=== PATIENT | female | born 1975 | race Caucasian/White ===

== ENCOUNTER → 2019-10-21 09:09 | Outpatient (BNVA) | payer OTHER, SELFPAY | PROVIDERS: PCP Nurse Practitioner; Visit Provider Internal Medicine | DX: Z20.818 Contact with and (suspected) exposure to other bacterial communicable diseases (principal) | CPT/HCPCS: 87635 ==

== ENCOUNTER → 2020-03-29 08:45 | Outpatient (BNVA) | payer OTHER, SELFPAY | PROVIDERS: PCP Nurse Practitioner; Visit Provider Obstetrics & Gynecology | DX: N92.6 Irregular menstruation, unspecified (principal); N92.0 Excessive and frequent menstruation with regular cycle | CPT/HCPCS: 83036; 84443; 85025; 88175; 88305 ==

== ENCOUNTER → 2020-04-05 08:06 | Outpatient (BNVA) | payer OTHER, SELFPAY | PROVIDERS: PCP Nurse Practitioner; Visit Provider Obstetrics & Gynecology | DX: N92.0 Excessive and frequent menstruation with regular cycle (principal) | CPT/HCPCS: 76830 ==

== ENCOUNTER → 2020-05-21 09:13 | Outpatient (BNVA) | payer OTHER, SELFPAY | PROVIDERS: PCP Nurse Practitioner; Visit Provider Obstetrics & Gynecology | DX: Z20.822 Contact with and (suspected) exposure to COVID-19 (principal); N92.0 Excessive and frequent menstruation with regular cycle | CPT/HCPCS: 87635 ==

== ENCOUNTER 2020-05-27 06:31 | Day surgery (SDC) | payer OTHER, SELFPAY ==
[2020-05-20 07:52] VITALS: BMI 34.7
--- NOTE | 2020-05-20 08:13 | ANES.PREANE2 ---
Pre-Anesthetic Assessment Pre-Anesthetic Assessment: Height/Weight: Height 1.68 m Weight 97.522 kg Preop Diagnosis: menorrhagia Proposed Procedure: Operation Date: 05/27/20 07:00 Proposed Procedures p Hysteroscopy 44329 [id number] N92.0(Not Applicable) - Jasmin Hong MD s Dilation And Curettage (D&C)(Not Applicable) - Jasmin Hong MD Was Beta Sarah taken within 24 hours: N/A Was Clonidine taken within 24 hours: N/A Social: Social History: No alcohol and No tobacco Exam: Pre-Anes Outpt Exam: alert, oriented x 3, clear to auscultation bilaterally and regular rate & rhythm Airway: Submandibular: WNL Cervical ROM: WNL MP: 2 Dentition: Full Pulmonary: Pulmonary: Asthma Metabolic: Metabolic: Morbid obesity Anesthetic Plan: ASA status: 2 Anesthesia: General Risk of > 500 ml blood loss (7ml/kg in children): No PFSH Anesthesia PFSH: Family History Brother Cancer Non-Hodgkins lymphoma Brother Cancer Leukemia Father Chronic kidney disease (CKD) Hypertension Mother Hypertension Denies family history of Ovarian cancer Diabetes CAD (coronary artery disease) Clotting disorder Hyperlipidemia Anesthesia complication Bleeding disorder Stroke Social History (Updated 05/19/20 @ 07:52 by ALISHA Parsons) Smoking and tobacco status: never smoked Alcohol intake: current Alcohol intake frequency: holidays/special occasions only Substance/Drug Use: never Data Anesthesia Cardiac Studies: No Data to Display
--- NOTE | 2020-05-27 07:06 | P.ANESUD_ITS ---
Pre-Anesthetic Update Pre-Anesthetic Assessment: Date of Surgery/Procedure: 05/27/20 Preop Amara gnosis: menorrhagia Proposed Procedure: Operation Date: 05/27/20 08:00 Proposed Procedures p Hysteroscopy 60241 71075 N92.0(Not Applicable) - Jasmin Hong MD s Dilation And Curettage (D&C) w/ablation, w/myosure and novasure(Not Applicable) - Jasmin Hong MD Any changes to Pre-Anesthetic Assessment?: No Exam: Pre-Anes Outpt Exam: alert, oriented x 3, clear to auscultation bilaterally and regular rate & rhythm Cardiac Studies: No Data to Display
[2020-05-27 07:12] VITALS: BP 168/108; PULSE 70; RESP 18; TEMP 36.4; O2SAT 99
[2020-05-27] MEDS: sodium chloride 0.9% 1,000 ML 30 ML IV (07:16)
[2020-05-27] MEDS: ketorolac 30 mg/mL INJ IVP (07:16)
--- NOTE | 2020-05-27 08:23 | W.PM.OPSUD ---
Surgery/Procedure H&P Update DATE OF PROCEDURE: May 27, 2020 DATE H&P PERFORMED: 05/19/20 H&P UPDATE INFORMATION: I have reviewed H&P completed within last 30 days, I have examined patient prior to procedure and No changes to prior documentation PREOP DIAGNOSIS: menorrhagia PLANNED PROCEDURE: Operation Date: 05/27/20 08:00 Proposed Procedures p Hysteroscopy 99661 [id number] N92.0(Not Applicable) - Jasmin Hong MD s Dilation And Curettage (D&C) w/ablation, w/myosure and novasure(Not Applicable) - Jasmin Hong MD
[2020-05-27 08:34] LABS: OR HCG Qualitative Urine Negative (Negative)
--- NOTE | 2020-05-27 09:17 | P.OP_ITS ---
Operative Report Date of procedure: May 27, 2020 Pre-op Diagnosis: menorrhagia Post-op diagnosis: same Post-op Findings: 10 week sized uterus with some posterior tissue Procedure Done: Hysteroscopy, dilation and curettage with endometrial ablation hysteroscopy deficit 730 ml Specimens removed/disposition: endometrial curettings Pathology: other Surgeon: Jasmin Hong Anesthesia: MAC Estimated blood loss (mL): 5 IV fluids (mL): 700 Urine output (mL): 0 Complications: none Condition: stable Disposition: PACU Procedure: The patient was taken to the operating room where monitored anesthesia was administered and found to be adequate. She was prepped and draped in the normal sterile fashion in the dorsal lithotomy position in [facility]. A weighted speculum was placed into the vagina and the anterior lip of the cervix grasped with a single-tooth tenaculum. The uterus was sounded to 10 cm. The uterine cavity length was determined to be 6 cm. The cervix was dilated to 15 [place]ian. The hysteroscope was advanced into the endometrial cavit y. There was tissue posteriorly. The MyoSure device was placed and activated to remove the tissue. The endometrial cavity was normalized. Pictures were taken pre and post procedure. The myosure was removed. The NovaSure device was placed into the uterine cavity. The width was determined to be 4.8 cm the length was 6 cm. The NovaSure device was activated and burn time was 56 seconds. All instruments were removed. The patient tolerated the procedure well. Sponge lap and needle counts were correct x3. She was taken to the recovery room in stable condition.
[2020-05-27 09:20] VITALS: BP 129/81; PULSE 77; RESP 14; TEMP 36.4; O2SAT 96
[2020-05-27 09:25] VITALS: BP 140/87; PULSE 74; RESP 16; O2SAT 96
--- NOTE | 2020-05-27 09:25 | PM.DCS ---
Discharge Providers Date of Discharge: May 27, 2020 Attending Provider at Discharge: Jasmin Hong MD Primary Care Provider: April Laureano APN Diagnoses at Discharge Discharge Diagnosis (1) Postoperative state: Status: Acute Reason for Visit Reason for Visit: Hysteroscopy, dilation curettage with ablation (59 Hospital Course Hospital Course The patient was admitted for surgery. She did well postoperatively and was ready for discharge. Physical Exam Sepsis: Is patient septic: No Discharge Data Data Completed and Pending: Pending at discharge Category Date Time Status ES surgery / GI i mages Routine Exams 05/27/20 08:19 Taken Pathology: Surgic al [PTH] Routine Pth 05/27/20 09:23 Ordered Labs from last 24 hours 05/27/20 07:19 Urine HCG, Qual Negative Vitals: Last Vital Signs Temp 97.6 F 05/27/20 07:12 Pulse 70 05/27/20 07:12 Resp 18 05/27/20 07:12 BP 168/108 05/27/20 07:12 Pulse Ox 99 05/27/20 07:12 Discharge Plan Discharge Patient Disposition: Home Condition: Stable Prescriptions: Continued albuterol sulfate 0.63 mg/3 mL solution for nebulization 0.63 mg inhalation Q6H PRN (Reason: sob) RF: 0 albuterol sulfate 90 mcg/actuation HFA aerosol inhaler 1 inh inhalation QID PRN (Reason: allergies) RF: 0 Spiriva with HandiHaler 18 mcg capsule, w/inhalation device 1 cap inhalation DAILY RF: 0 Flovent HFA 110 mcg/actuation HFA aerosol inhaler 2 puff inhalation BID RF: 0 montelukast [Singulair] 10 mg tablet 10 mg PO DAILY RF: 0 fluticasone propionate [Flonase Allergy Relief] 50 mcg/actuation spray,suspension 1 spray intranasal DAILY PRN (Reason: allergies) RF: 0 cetirizine [Zyrtec] 10 mg tablet 10 mg PO DAILY PRN (Reason: allergies) RF: 0 Discharge Orders: Discharge Order (Routine); Ordered 05/27/20 Ordered By: Jasmin Hong Discharge Attestations Time Spent in Discharge Care*: less than 30 min Quality Metrics Clinical Quality Measures During this hospital stay, did patient experience: None Coding Level of Care Code Acute Chg FW DC note Diagnoses Postoperative state Z98.890
[2020-05-27 09:30] VITALS: BP 146/101; PULSE 76; RESP 14; TEMP 36.4; O2SAT 94
[2020-05-27 09:39] VITALS: BP 152/85; PULSE 76; RESP 16; TEMP 36.4; O2SAT 94
[2020-05-27 09:50] VITALS: BP 135/98; PULSE 67; RESP 18; O2SAT 95
--- NOTE | 2020-05-27 13:34 | ANE.PACU2 ---
Inpatient post-anesthesia follow up: Airway intact: Yes Vital signs: Temperature 97.5 F Pulse Rate 67 Respiratory Rate 18 Blood Pressure 135/98 Pulse Oximetry 95 Oxygen Delivery Me thod Room Air Oxygen Flow Rate 6 Fraction of Inspir ed Oxygen Hydration adequate: Yes Nausea and vomiting: No Pain level: 3 Mental status: Baseline
== END 2020-05-27 10:20 | disposition home or self-care (01) ==
PROVIDERS: Anesthesiology; PCP Nurse Practitioner; Visit Provider Obstetrics & Gynecology
PROC: 0UDB8ZZ Extraction of Endometrium, Via Natural or Artificial Opening Endoscopic (ICD-10-PCS; CPT 58558; 2020-05-27 08:00)
DX: N92.0 Excessive and frequent menstruation with regular cycle (principal); E66.01 Morbid (severe) obesity due to excess calories; Z68.34 Body mass index [BMI] 34.0-34.9, adult; J45.909 Unspecified asthma, uncomplicated
CPT/HCPCS: 58563; 81025; 84703; 88305; 96365; 96374; J0690; J1885; J2250; J2405; J2704; J3010; J7030

== ENCOUNTER 2020-10-08 07:14 | Outpatient (CLI) | payer OTHER, SELFPAY ==
--- NOTE | 2020-10-08 | XR_ITS ---
WS: [id number] AP pelvis, 2 views of each hip, 10/08/2020 Clinical Data: PAIN IN RIGHT HIP Comparison: None. Findings: AP pelvis: No fractures or dislocations are seen. The SI joints and pubic symphysis are unremarkable. No bone de struction or erosion is noted. The sacrum is unremarkable. Right hip: No fractures or dislocations are seen. There is a small right acetabular lip. No erosion, sclerosis, narrowing or cyst formation is seen. The soft tissues are normal. Left hip: No fractures or dislocations are seen. There is a small acetabular lip. No erosion, sclerosis, narrow ing or cyst formation is seen. The soft tissues are normal. XR/XR hip BI m 5V wo/w pel* [id number] Impression: 1. Negative AP pelvis. 2. Minimal osteoarthritic lipping of both hips.
--- NOTE | 2020-10-08 07:29 | XR_ITS ---
WS: [id number] Lumbar spine, 3 views, 10/08/2020 Clinical Data: PAIN IN RIGHT HIP Comparison: None. Findings: No compression fractures or subluxation is seen. No disc space narrowing is seen. The transverse proc esses and SI joints are normal. There is minimal osteoarthritic spurring from L1 through L4. There are clips in the right upper quadr ant from a cholecystectomy. XR/XR lumbar spine 2-3V* [id number] Impression: Minimal osteoarthritis L1-L4.
--- NOTE | 2020-10-08 07:30 | XR_ITS ---
WS: [id number] AP pelvis, 2 views of each hip, 10/08/2020 Clinical Data: PAIN IN RIGHT HIP Comparison: None. Findings: AP pelvis: No fractures or dislocations are seen. The SI joints and pubic symphysis are unremarkable. No bone de struction or erosion is noted. The sacrum is unremarkable. Right hip: No fractures or dislocations are seen. There is a small right acetabular lip. No erosion, sclerosis, narrowing or cyst formation is seen. The soft tissues are normal. Left hip: No fractures or dislocations are seen. There is a small acetabular lip. No erosion, sclerosis, narrow ing or cyst formation is seen. The soft tissues are normal.
== END 2020-10-08 07:15 | disposition home or self-care (01) ==
PROVIDERS: PCP Nurse Practitioner; Visit Provider Nurse Practitioner Family
DX: M25.552 Pain in left hip (principal); M25.551 Pain in right hip; M47.816 Spondylosis without myelopathy or radiculopathy, lumbar region
CPT/HCPCS: 72100; 73521; 73523

== ENCOUNTER 2023-01-12 14:45 | Emergency (ER) | payer OTHER, SELFPAY ==
[2023-01-12 15:16] VITALS: BP 157/106; PULSE 65; RESP 18; TEMP 36.7; O2SAT 100; BMI 36.3
--- NOTE | 2023-01-12 15:35 | ED_ITS ---
Documented by User: RENATA Anaya 01/15/23 09:00 HPI - SOB/Dyspnea General: Chief Complaint: Shortness of Breath/Dyspnea Stated Complaint: SOB,blood pressure Time Seen by Provider: 01/12/23 15:28 Source: patient Mode of arrival: ambulatory Limitations: no limitations History of Present Illness: HPI Narrative: Patient is a 47-year-old female presents to ED today with a complaint of shortness of breath. Patient states on 12/25 she was started on lisinopril for hypertension. Patient states very shortly after beginning this medication she developed a cough and shortness of breath. Never had any lip/tongue/facial swelling. Occasional throat itching. She states she took this medication for about a week before discontinuing it on 01/01. Spite discontinuation of the medication-her symptoms have persisted. She was seen recently (01/09) and placed on a prednisone on taper. She states the first day after starting the prednisone she initially felt somewhat improved but again symptoms returned. 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 Patient states she has asthma and has been using her albuterol and other respiratory medications without any relief. Reporting dyspnea with minimal exertion at times but other times she seems okay stating she was actually able to get on her elliptical machine this morning. Continues to have a mild dry non-productive cough. No chest pain, nasal congestion/sinus pain/pressure/rhinorrhea/sore throat/headache. No fevers. MD elicited complaint: shortness of breath Pertinent past history: asthma Onset (ago): day(s) Timing: constant and intermittent Severity: moderate Exacerbating factors: exertion Relieving factors: nothing Known history of: asthma Associated symptoms: Deny abdominal pain, chest congestion, chest pain, dizziness, extremity pain, fever(s), hemoptysis, lightheadedness, nausea, orthopnea, palpitations, syncope or vomiting Treatment prior to arrival: bronchodilator Related Data: Home oxygen amount: none Review of Systems Const: Denies: fever(s), chills, body aches, fatigue or malaise ENMT: Denies: throat pain or odynophagia Card: Reports: dyspnea on exertion; Denies: chest pain, palpitations, irregular heart rhythm, edema, swelling of feet/ankles, lightheadedness, syncope, pre-syncope, orthopnea, leg pain with exertion or acrocyanosis Resp: Reports: dyspnea and non-productive cough; Denies: productive cough, wheezing, stridor, pain on inspiration, change in phlegm color, hemoptysis or chest congestion GI: Denies: abdominal pain, nausea, vomiting or diarrhea Musc: Denies: neck pain, back pain, extremity pain or joint pain Skin/Breast: Denies: rash Neuro: Denies: headache(s), numbness in extremities, weakness in extremities, sensory changes or dizziness PFSH ED PFSH: Family History Brother Cancer Non-Hodgkins lymphoma Brother Cancer Leukemia Father Chronic kidney disease (CKD) Hypertension Mother Hypertension Denies family history of Ovarian cancer Diabetes CAD (coronary artery disease) Clotting disorder Hyperlipidemia Anesthesia complication Bleeding disorder Stroke Social History Smoking and tobacco/nicotine status: never used tobacco/nicotine Alcohol intake: current Alcohol intake frequency: holidays/special occasions only Substance/Drug Use: never Physical Exam Const: COMMON NORMALS: patient oriented x3, no limitations, alert and well nourished GENERAL APPEARANCE: cooperative NUTRITIONAL APPEARANCE: obese ORIENTATION/CONSCIOUSNESS: Yes awake, Yes oriented to person, Yes oriented to place and Yes oriented to time OTHER: appears winded while speaking with me-O2 sats are normal and she is not appearing tachypneic HENMT: COMMON NORMALS: normocephalic and atraumatic HEAD & SCALP: normal to inspection, normocephalic and atraumatic Chest: COMMONS NORMALS: normal inspection of the chest Resp: COMMON NORMALS: normal respiratory effort and clear to auscultation bilaterally AUSCULTATION: clear to auscultation bilaterally Cardio: COMMON NORMALS: regular rate and regular rhythm RATE: regular rate RHYTHM: regular rhythm Extremity: COMMON NORMALS: no clubbing, cyanosis or edema, no calf tenderness and no pedal edema Neuro: COMMON NORMALS: patient oriented x3 SENSORIUM/ORIENTATION: Yes alert , Yes oriented to person, Yes oriented to place and Yes oriented to time Skin: COMMON NORMALS: no rashes or lesions noted GENERAL SKIN EXAM: no rashes or lesions noted Course 2 ED course: Labs pending. CXR normal. Care being transferred to Jose L Little, EM[employer]UTIONS EXECUTIVE at 1700 ES Vital Signs: Vital signs: Vital Signs Temperature 98.1 F 01/12/23 15:16 Pulse Rate 65 01/12/23 15:16 Respiratory Rate 18 01/12/23 15:16 Blood Pressure 157/106 01/12/23 15:16 Pulse Oximetry 100 01/12/23 15:16 Oxygen Delivery Me thod Room Air 01/12/23 15:16 MDM - SOB/Dyspnea Lab Data 01/12/23 16:16 01/12/23 16:16 Labs/Radiology: Radiology Impressions Chest X-Ray 01/12/23 15:35 IMPRESSION: No acute findings. Laboratory Results WBC 11.86 10^3/uL (3.29-11.43) H 01/12/23 16:16 RBC 4.59 10^6/uL (3.85-5.65) 01/12/23 16:16 Hgb 14.40 g/dL (11.27-16.99) 01/12/23 16:16 Hct 42.2 % (36-47) 01/12/23 16:16 MCV 91.9 fl (85-98) 01/12/23 16:16 MCH 31.4 pg (27-33) 01/12/23 16:16 MCHC 34.1 g/dL (30-55) 01/12/23 16:16 RDW 13.2 % (12.1-15.1) 01/12/23 16:16 Plt Count 331 10^3/cmm (157-399) 01/12/23 16:16 MPV 9.7 fL (7.4-10.4) 01/12/23 16:16 Neut % (Auto) 86.1 % 01/12/23 16:16 Lymph % (Auto) 10.6 % 01/12/23 16:16 [place] % (Auto) 2.1 % 01/12/23 16:16 Eos % (Auto) 0.0 % 01/12/23 16:16 Baso % (Auto) 0.1 % 01/12/23 16:16 Neut # (Auto) 10.21 10^3/uL (1.8-7.7) H 01/12/23 16:16 Lymph # (Auto) 1.3 10^3/uL (0.8-4.8) 01/12/23 16:16 [place] # (Auto) 0.3 10^3/uL (0.2-0.9) 01/12/23 16:16 Eos # (Auto) 0.0 10^3/uL (0.0-0.8) 01/12/23 16:16 Baso # (Auto) 0.0 10^3/uL (0.0-0.1) 01/12/23 16:16 Nucleated RBC % (auto) 0 % 01/12/23 16:16 Nucleated RBCs # 0.0 /100WBC 01/12/23 16:16 D-Dimer 0.31 ug/mLFEU (0-0.59) 01/12/23 16:16 Sodium 137 mmol/L (136-145) 01/12/23 16:16 Potassium 4.3 mmol/L (3.5-5.1) 01/12/23 16:16 Chloride 106 mmol/L (98-107) 01/12/23 16:16 Carbon Dioxide 17 mmol/L (22-29) L 01/12/23 16:16 Anion Gap 18.3 (5-19) 01/12/23 16:16 BUN 17 mg/dL (6-20) 01/12/23 16:16 Creatinine 0.9 mg/dL (0.5-0.9) 01/12/23 16:16 GFR Calculation 66.5 mL/min (90-130) L 01/12/23 16:16 Glucose 141 mg/dL (65-115) H 01/12/23 16:16 Calculated Osmolality 288 mOsm/kg (285-295) 01/12/23 16:16 Calcium 9.6 mg/dL (8.5-10.5) 01/12/23 16:16 Total Bilirubin 0.2 mg/dL (0.15-1.2) 01/12/23 16:16 AST 24 U/L (0-32) 01/12/23 16:16 ALT 22 U/L (0-33) 01/12/23 16:16 Alkaline Phosphatase 67 U/L (35-105) 01/12/23 16:16 NT-Pro-B Natriuret Pep 137 pg/mL (0-125) H 01/12/23 16:16 Total Protein 7.2 g/dL (6.6-8.7) 01/12/23 16:16 Albumin 4.3 g/dL (3.5-5.2) 01/12/23 16:16 Globulin 2.9 g/dL (1.3-4.6) 01/12/23 16:16 Procalcitonin 0.03 ng/mL (0-0.5) 01/12/23 16:16 Nasal Influ A H1 2009 PCR Not detected (NOT DETECT) 01/12/23 17:37 Adenovirus (PCR) Not detected (NOT DETECT) 01/12/23 17:37 C. pneumoniae DNA (PCR) Not detected (NOT DETECT) 01/12/23 17:37 Coronavirus 229E (PCR) Not detected (NOT DETECT) 01/12/23 17:37 Human Metapneumovir PCR Not detected (NOT DETECT) 01/12/23 17:37 Influenza A (H1) PCR Not detected (NOT DETECT) 01/12/23 17:37 Influenza A (H3) PCR Not detected (NOT DETECT) 01/12/23 17:37 Influenza Type A (PCR) Not detected (NOT DETECT) 01/12/23 17:37 Influenza Type B (PCR) Not detected (NOT DETECT) 01/12/23 17:37 M. pneumoniae (PCR) Not detected (NOT DETECT) 01/12/23 17:37 Parainfluenza 1 (PCR) Not detected (NOT DETECT) 01/12/23 17:37 Parainfluenza 2 (PCR) Not detected (NOT DETECT) 01/12/23 17:37 Parainfluenza 3 (PCR) Not detected (NOT DETECT) 01/12/23 17:37 Parainfluenza 4 (PCR) Not detected (NOT DETECT) 01/12/23 17:37 RSV Type A (PCR) Not detected (NOT DETECT) 01/12/23 17:37 RSV Type B (PCR) Not detected (NOT DETECT) 01/12/23 17:37 Entero/Rhino (PCR) Not detected (NOT DETECT) 01/12/23 17:37 SARS-CoV-2 (PCR) Not detected (NOT DETECT) 01/12/23 17:37 Discharge Plan Discharge Patient Disposition: Home Clinical Impression: Asthma with exacerbation Qualifiers: Asthma severity: moderate Asthma persistence: persistent Qualified Code(s): J45.41 - Moderate persistent asthma with (acute) exacerbation Hypertension Qualifiers: Hypertension type: unspecified Qualified Code(s): I10 - Essential (primary) hypertension Condition: Stable Prescriptions: New prednisone 20 mg tablet 60 mg PO DAILY 5 Days Qty: 15 0RF amlodipine 10 mg tablet 10 mg PO DAILY Qty: 30 0RF No Action medroxyprogesterone [Provera] 2.5 mg tablet 2.5 mg PO DAILY Qty: 90 5RF albuterol sulfate 0.63 mg/3 mL solution for nebulization 0.63 mg inhalation Q6H PRN (Reason: sob) albuterol sulfate 90 mcg/actuation HFA aerosol inhaler 1 inh inhalation QID PRN (Reason: allergies) Spiriva with HandiHaler 18 mcg capsule, w/inhalation device 1 cap inhalation DAILY Rx Instructions: puncture 1 cap using device; one dose = 2 inhalations Flovent HFA 110 mcg/actuation HFA aerosol inhaler 2 puff inhalation BID fluticasone propionate [Flonase Allergy Relief] 50 mcg/actuation spray,suspension 1 spray intranasal DAILY PRN (Reason: allergies) Rx Instructions: administer into each nostril cetirizine [Zyrtec] 10 mg tablet 10 mg PO DAILY PRN (Reason: allergies) tretinoin 0.1 % cream 1 applic TOPICAL BEDTIME prednisone 20 mg tablet See Rx Instructions .ROUTE .COMPLEX Rx Instructions: TAKE 3 TABLETS BY MOUTH DAILY FOR 3 DAYS, 2 TABLETS DAILY FOR 3 DAYS, THEN 1 TABLET DAILY FOR 3 DAYS. spironolactone 100 mg tablet 100 mg PO DAILY amlodipine 5 mg tablet 5 mg PO DAILY Discharge Orders: Discharge ED (Routine); Ordered 01/12/23 Ordered By: Jose L Little Referrals: Sangeetha Guy FNP [Primary Care Provider] - Discharge Diet: Usual diet Discharge Activity: Increase activity as tolerated Patient Instructions: Dyspnea (ED) Activity Restrictions/Additional Instructions: Increase prednisone back up to 60 mg for the next 5 days and then decrease back to 40 and your original taper. Drink plenty of water with medications. Increase amlodipine to 10 mg daily for better blood pressure control. Follow-up with primary care in 3 to 5 days for recheck. Return to ED for worsening symptoms such as fever greater than 100.4, increasing shortness of breath, severe chest pain. Sign Out Sign Out Data: Patient Sign Out occurred on 01/12/23 at 16:59. Patient's care was discussed, and care was transferred from to Jose L Little. Coding Level of Care Code ED Actuary Clerk for Ella Fwd Documented by User: BETY Bustos 01/12/23 17:39 HPI - SOB/Dyspnea General: Chief Complaint: Shortness of Breath/Dyspnea Stated Complaint: SOB,blood pressure Time Seen by Provider: 01/12/23 15:28 PFSH ED PFSH: Family History Brother Cancer Non-Hodgkins lymphoma Brother Cancer Leukemia Father Chronic kidney disease (CKD) Hypertension Mother Hypertension Denies family history of Ovarian cancer Diabetes CAD (coronary artery disease) Clotting disorder Hyperlipidemia Anesthesia complication Bleeding disorder Stroke Social History Smoking and tobacco/nicotine status: never used tobacco/nicotine Alcohol intake: current Alcohol intake frequency: holidays/special occasions only Substance/Drug Use: never Course Vital Signs: Vital signs: Vital Signs Temperature 98.1 F 01/12/23 15:16 Pulse Rate 65 01/12/23 15:16 Respiratory Rate 18 01/12/23 15:16 Blood Pressure 157/106 01/12/23 15:16 Pulse Oximetry 100 01/12/23 15:16 Oxygen Delivery Me thod Room Air 01/12/23 15:16 MDM - SOB/Dyspnea Medical Decision Making Patient comes in today for complaints of increased shortness of breath. Patient reports that she has had increased shortness of breath after being started on lisinopril at the first of the month. Patient reports no fever or chest pain. On exam lungs had good air movement with a mild inspiratory wheeze. No edema is noted in the extremities. Vital signs were normal except for elevated blood pressure 157/106. Differential diagnosis includes CHF, exacerbation of asthma, COPD exacerbation, PE, adverse drug effect. Chest x-ray was normal. White blood cell count with mild leukocytosis at ,000, patient is presently on prednisone 40 mg daily. CMP was unremarkable. BNP was slightly elevated but not significant at 137. Chest x-ray was normal. No signs of CHF was noted. Suspect that this may be an exacerbation of patient's asthma we will increase her prednisone back to 60 mg and she will continue for routine care. Recommended increasing amlodipine to 10 mg daily for better blood pressure control. Discussed need for follow-up or return to the ER. Patient reported understanding agreed to plan. Lab Data 01/12/23 16:16 01/12/23 16:16 Labs/Radiology: Radiology Impressions Chest X-Ray 01/12/23 15:35 IMPRESSION: No acute findings. Laboratory Results WBC 11.86 10^3/uL (3.29-11.43) H 01/12/23 16:16 RBC 4.59 10^6/uL (3.85-5.65) 01/12/23 16:16 Hgb 14.40 g/dL (11.27-16.99) 01/12/23 16:16 Hct 42.2 % (36-47) 01/12/23 16:16 MCV 91.9 fl (85-98) 01/12/23 16:16 MCH 31.4 pg (27-33) 01/12/23 16:16 MCHC 34.1 g/dL (30-55) 01/12/23 16:16 RDW 13.2 % (12.1-15.1) 01/12/23 16:16 Plt Count 331 10^3/cmm (157-399) 01/12/23 16:16 MPV 9.7 fL (7.4-10.4) 01/12/23 16:16 Neut % (Auto) 86.1 % 01/12/23 16:16 Lymph % (Auto) 10.6 % 01/12/23 16:16 [place] % (Auto) 2.1 % 01/12/23 16:16 Eos % (Auto) 0.0 % 01/12/23 16:16 Baso % (Auto) 0.1 % 01/12/23 16:16 Neut # (Auto) 10.21 10^3/uL (1.8-7.7) H 01/12/23 16:16 Lymph # (Auto) 1.3 10^3/uL (0.8-4.8) 01/12/23 16:16 [place] # (Auto) 0.3 10^3/uL (0.2-0.9) 01/12/23 16:16 Eos # (Auto) 0.0 10^3/uL (0.0-0.8) 01/12/23 16:16 Baso # (Auto) 0.0 10^3/uL (0.0-0.1) 01/12/23 16:16 Nucleated RBC % (auto) 0 % 01/12/23 16:16 Nucleated RBCs # 0.0 /100WBC 01/12/23 16:16 D-Dimer 0.31 ug/mLFEU (0-0.59) 01/12/23 16:16 Sodium 137 mmol/L (136-145) 01/12/23 16:16 Potassium 4.3 mmol/L (3.5-5.1) 01/12/23 16:16 Chloride 106 mmol/L (98-107) 01/12/23 16:16 Carbon Dioxide 17 mmol/L (22-29) L 01/12/23 16:16 Anion Gap 18.3 (5-19) 01/12/23 16:16 BUN 17 mg/dL (6-20) 01/12/23 16:16 Creatinine 0.9 mg/dL (0.5-0.9) 01/12/23 16:16 GFR Calculation 66.5 mL/min (90-130) L 01/12/23 16:16 Glucose 141 mg/dL (65-115) H 01/12/23 16:16 Calculated Osmolality 288 mOsm/kg (285-295) 01/12/23 16:16 Calcium 9.6 mg/dL (8.5-10.5) 01/12/23 16:16 Total Bilirubin 0.2 mg/dL (0.15-1.2) 01/12/23 16:16 AST 24 U/L (0-32) 01/12/23 16:16 ALT 22 U/L (0-33) 01/12/23 16:16 Alkaline Phosphatase 67 U/L (35-105) 01/12/23 16:16 NT-Pro-B Natriuret Pep 137 pg/mL (0-125) H 01/12/23 16:16 Total Protein 7.2 g/dL (6.6-8.7) 01/12/23 16:16 Albumin 4.3 g/dL (3.5-5.2) 01/12/23 16:16 Globulin 2.9 g/dL (1.3-4.6) 01/12/23 16:16 Procalcitonin 0.03 ng/mL (0-0.5) 01/12/23 16:16 Nasal Influ A H1 2009 PCR Not detected (NOT DETECT) 01/12/23 17:37 Adenovirus (PCR) Not detected (NOT DETECT) 01/12/23 17:37 C. pneumoniae DNA (PCR) Not detected (NOT DETECT) 01/12/23 17:37 Coronavirus 229E (PCR) Not detected (NOT DETECT) 01/12/23 17:37 Human Metapneumovir PCR Not detected (NOT DETECT) 01/12/23 17:37 Influenza A (H1) PCR Not detected (NOT DETECT) 01/12/23 17:37 Influenza A (H3) PCR Not detected (NOT DETECT) 01/12/23 17:37 Influenza Type A (PCR) Not detected (NOT DETECT) 01/12/23 17:37 Influenza Type B (PCR) Not detected (NOT DETECT) 01/12/23 17:37 M. pneumoniae (PCR) Not detected (NOT DETECT) 01/12/23 17:37 Parainfluenza 1 (PCR) Not detected (NOT DETECT) 01/12/23 17:37 Parainfluenza 2 (PCR) Not detected (NOT DETECT) 01/12/23 17:37 Parainfluenza 3 (PCR) Not detected (NOT DETECT) 01/12/23 17:37 Parainfluenza 4 (PCR) Not detected (NOT DETECT) 01/12/23 17:37 RSV Type A (PCR) Not detected (NOT DETECT) 01/12/23 17:37 RSV Type B (PCR) Not detected (NOT DETECT) 01/12/23 17:37 Entero/Rhino (PCR) Not detected (NOT DETECT) 01/12/23 17:37 SARS-CoV-2 (PCR) Not detected (NOT DETECT) 01/12/23 17:37 All radiology interpretation(s) finalized by discharge Discharge Plan Discharge Patient Disposition: Home Clinical Impression: Asthma with exacerbation Qualifiers: Asthma severity: moderate Asthma persistence: persistent Qualified Code(s): J45.41 - Moderate persistent asthma with (acute) exacerbation Hypertension Qualifiers: Hypertension type: unspecified Qualified Code(s): I10 - Essential (primary) hypertension Condition: Stable Prescriptions: New prednisone 20 mg tablet 60 mg PO DAILY 5 Days Qty: 15 0RF amlodipine 10 mg tablet 10 mg PO DAILY Qty: 30 0RF No Action medroxyprogesterone [Provera] 2.5 mg tablet 2.5 mg PO DAILY Qty: 90 5RF albuterol sulfate 0.63 mg/3 mL solution for nebulization 0.63 mg inhalation Q6H PRN (Reason: sob) albuterol sulfate 90 mcg/actuation HFA aerosol inhaler 1 inh inhalation QID PRN (Reason: allergies) Spiriva with HandiHaler 18 mcg capsule, w/inhalation device 1 cap inhalation DAILY Rx Instructions: puncture 1 cap using device; one dose = 2 inhalations Flovent HFA 110 mcg/actuation HFA aerosol inhaler 2 puff inhalation BID fluticasone propionate [Flonase Allergy Relief] 50 mcg/actuation spray,suspension 1 spray intranasal DAILY PRN (Reason: allergies) Rx Instructions: administer into each nostril cetirizine [Zyrtec] 10 mg tablet 10 mg PO DAILY PRN (Reason: allergies) tretinoin 0.1 % cream 1 applic TOPICAL BEDTIME prednisone 20 mg tablet See Rx Instructions .ROUTE .COMPLEX Rx Instructions: TAKE 3 TABLETS BY MOUTH DAILY FOR 3 DAYS, 2 TABLETS DAILY FOR 3 DAYS, THEN 1 TABLET DAILY FOR 3 DAYS. spironolactone 100 mg tablet 100 mg PO DAILY amlodipine 5 mg tablet 5 mg PO DAILY Discharge Orders: Discharge ED (Routine); Ordered 01/12/23 Ordered By: Jose L Little Referrals: Sangeetha Guy FNP [Primary Care Provider] - Discharge Diet: Usual diet Discharge Activity: Increase activity as tolerated Patient Instructions: Dyspnea (ED) Activity Restrictions/Additional Instructions: Increase prednisone back up to 60 mg for the next 5 days and then decrease back to 40 and your original taper. Drink plenty of water with medications. Increase amlodipine to 10 mg daily for better blood pressure control. Follow-up with primary care in 3 to 5 days for recheck. Return to ED for worsening symptoms such as fever greater than 100.4, increasing shortness of breath, severe chest pain. Sign Out Sign Out Data: Patient Sign Out occurred on 01/12/23 at 16:59. Patient's care was discussed, and care was transferred from to Jose L Little. Coding Level of Care Code ED Actuary Clerk for Ella Salter
--- NOTE | 2023-01-12 15:35 | XRR_ITS ---
PROCEDURE INFORMATION: Exam: XR Chest Exam date and time: 01/12/2023 3:45 PM Age: 47 years old Clinical indication: Shortness of breath; Patient HX: SOB; Asthma TECHNIQUE: Imaging protocol: Radiologic exam of the chest. Views: 1 view. COMPARISON: CT cervical spin wo con* [id number] 08/01/2018 6:11 PM FINDINGS: Lungs: Unremarkable. No consolidation. Pleural spaces: Unremarkable. No pleural effusion. No pneumothorax. Heart/Mediastinum: Unremarkable. No cardiomegaly. Bones/joints: Unremarkable. XR/XR chest 1V portable [id number] IMPRESSION: No acute findings.
[2023-01-12] MEDS: methylPREDNISolone sod succ 125 mg/2 mL INJ IVP (16:10)
[2023-01-12 16:38] LABS: Basophils % 0.1 %; Hematocrit 42.2 % (36-47); Lymphocytes # 1.3 10^3/uL (0.8-4.8); Lymphocytes % 10.6 %; Mean Corpuscular HGB Conc 34.1 g/dL (30-55); Mean Corpuscular Hemoglobin 31.4 pg (27-33); Mean Corpuscular Volume 91.9 fl (85-98); Mean Platelet Volume 9.7 fL (7.4-10.4); Monocytes # 0.3 10^3/uL (0.2-0.9); Monocytes % 2.1 %; Neutrophils # 10.21 10^3/uL (1.8-7.7); Neutrophils % 86.1 %; Nucleated Red Blood Cells % 0 %; Platelet Count 331 10^3/cmm (157-399); Red Blood Count 4.59 10^6/uL (3.85-5.65); Red Cell Distribution Width 13.2 % (12.1-15.1); White Blood Count 11.86 10^3/uL (3.29-11.43)
[2023-01-12 16:53] LABS: D Dimer 0.31 ug/mLFEU (0-0.59)
[2023-01-12 17:01] LABS: NT Pro B Type Natriuretic Pept 137 pg/mL (0-125); Procalcitonin 0.03 ng/mL (0-0.5)
[2023-01-12 17:12] LABS: Alanine Aminotransferase 22 U/L (0-33); Albumin Level 4.3 g/dL (3.5-5.2); Alkaline Phosphatase 67 U/L (35-105); Anion Gap 18.3 (5-19); Aspartate Amino Transferase 24 U/L (0-32); Blood Urea Nitrogen 17 mg/dL (6-20); Calcium 9.6 mg/dL (8.5-10.5); Carbon Dioxide 17 mmol/L (22-29); Chloride 106 mmol/L (98-107); Globulin 2.9 g/dL (1.3-4.6); Glomerular Filtration Rate 66.5 mL/min (90-130); Glucose 141 mg/dL (65-115); Osmolality Calculated 288 mOsm/kg (285-295); Potassium 4.3 mmol/L (3.5-5.1); Sodium 137 mmol/L (136-145); Total Bilirubin 0.2 mg/dL (0.15-1.2); Total Protein 7.2 g/dL (6.6-8.7)
[2023-01-12] MEDS: diphenhydrAMINE 50 mg/mL SDV 1mL 25 MG IVP (17:35)
[2023-01-12 19:56] LABS: Adenovirus Not Detected (NOT DETECT); Chlamydia Pneumoniae Not Detected (NOT DETECT); Coronavirus 229E,HKU1,NL63,OC4 Not Detected (NOT DETECT); Human Metapneumovirus Not Detected (NOT DETECT); Human Rhinovirus/Enterovirus Not Detected (NOT DETECT); Influenza A Not Detected (NOT DETECT); Influenza A H1 Not Detected (NOT DETECT); Influenza A H1-2009 Not Detected (NOT DETECT); Influenza A H3 Not Detected (NOT DETECT); Influenza B Not Detected (NOT DETECT); Mycoplasma Pneumoniae Not Detected (NOT DETECT); Parainfluenza Virus Type 1 Not Detected (NOT DETECT); Parainfluenza Virus Type 2 Not Detected (NOT DETECT); Parainfluenza Virus Type 3 Not Detected (NOT DETECT); Parainfluenza Virus Type 4 Not Detected (NOT DETECT); Respiratory Syncytial Virus A Not Detected (NOT DETECT); Respiratory Syncytial Virus B Not Detected (NOT DETECT); SARS-COV-2 Not Detected (NOT DETECT)
== END 2023-01-12 19:14 | disposition home or self-care (01) ==
PROVIDERS: Physician Assistant; Emergency Provider Nurse Practitioner Family; PCP Nurse Practitioner Family
DX: J45.41 Moderate persistent asthma with (acute) exacerbation (principal); I10 Essential (primary) hypertension; Z11.52 Encounter for screening for COVID-19
CPT/HCPCS: 71045; 80053; 83880; 84145; 85025; 85378; 87486; 87581; 87633; 96374; 96375; 99284; J1200; J2930

== ENCOUNTER → 2024-10-30 09:09 | Outpatient (BNVA) | payer OTHER, SELFPAY | PROVIDERS: PCP Nurse Practitioner Family; Visit Provider Nurse Practitioner Women's Health | DX: Z79.890 Hormone replacement therapy (principal) | CPT/HCPCS: 80053; 84443 ==